=== PATIENT | male | born 1985 | race Caucasian/White ===

== ENCOUNTER 2017-07-26 21:09 | Emergency (ER) | payer SELFPAY ==
[~2017-07-26 21:09] MED LIST: CITA20 PO; FOLI1 PO; GABA100C4 PO; METO25 PO; THIA100T PO
[2017-07-26 21:10] VITALS: BP 149/85; PULSE 89; RESP 16; TEMP 98.7; O2SAT 97
[2017-07-26] MEDS ORDERED: MULT1TAB46 (22:54)
[2017-07-26] MEDS ORDERED: LEXA20TA PO (22:54)
[2017-07-26] MEDS ORDERED: CLON0.1T PO (22:54)
[2017-07-26] MEDS ORDERED: ATOM40 PO (22:54)
[2017-07-26] MEDS ORDERED: VIST50CA PO (22:54)
--- NOTE | 2017-07-26 23:03 | PD ---
HPI Chief Complaint: Cold / Flu Symptoms Time Seen by Provider: 22:57 Travel History International Travel<30 days: No Contact w/Intl Traveler<30days: No Traveled to known affect area: No History of Present Illness HPI 42-year-old male presents to emergency department for evaluation of cough, SORE throat chest congestion, right ear pain, nausea, diarrhea area this has worsening over the last 2-3 days. Subjective fever without chills. Significant abdominal pain. No chest pain. No focal deficits or weakness. Patient is no other symptoms to report. PFSH Past Medical History Blood Disorders: No Anxiety: Yes Depression: Yes Heart Rhythm Problems: Yes (PALPITATIONS) Chest Pain: Yes Diminished Hearing: No Endocrine: No GERD: Yes Genitourinary: No Hepatitis: Yes (hepatitis c) Hypertension: Yes Immune Disorder: Yes (HEPATITIS C) Musculoskeletal: Yes Neurologic: Yes Reproductive: No Respiratory: No Immunizations Current: Yes Radiation Therapy: No Influenza Vaccination: No Past Surgical History Arteriovenous Shunt: No Insulin Pump: No Joint Replacement: No Oral Surgery: Yes (WISDOM TEETH) Pacemaker: No Tonsillectomy: Yes Other Surgery: Yes Social History Alcohol Use: Yes (occ) Tobacco Use: Yes (VAPES) 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) Allergies-Medications (Allergen,Severity, Reaction): Coded Allergies: No Known Allergies (Verified Adverse Reaction, Unknown, 07/26/17) Reported Meds & Prescriptions Reported Meds & Active Scripts Active Tessalon Perles (Benzonatate) 100 Mg Cap 200 Mg PO TID PRN Prednisone 50 Mg Tab 50 Mg PO DAILY 5 Days Proair Hfa 8.5 GM Inh (Albuterol Sulfate) 90 Mcg/Act Aer 2 Puff INH Q4HR PRN 108 mcg/actuation Reported Vistaril (Hydroxyzine Pamoate) 50 Mg Cap 50 Mg PO TID PRN Clonidine (Clonidine HCl) 0.1 Mg Tab 0.1 Mg PO HS Lexapro (Escitalopram Oxalate) 20 Mg Tab 20 Mg PO DAILY Strattera (Atomoxetine HCl) 40 Mg Cap 40 Mg PO DAILY Multi Vitamin Daily (Multiple Vitamin) 1 Tab Tab Review of Systems Except as stated in HPI: all other systems reviewed are Neg Physical Exam Narrative GENERAL: Well-nourished, well-developed outpatient with no acute distress SKIN: Focused skin assessment warm/dry. HEAD: Normocephalic. No mastoid tenderness EARS: Bilateral pinnae and external canals appear within normal limits. Bilateral tympanic membranes without erythema, dullness or perforation. EYES: No scleral icterus. No injection or drainage. NECK: Supple, trachea midline. No JVD or lymphadenopathy. CARDIOVASCULAR: Regular rate and rhythm without murmurs, gallops, or rubs. RESPIRATORY: Breath sounds coarse but clear to cough equal bilaterally. No accessory muscle use. GASTROINTESTINAL: Abdomen soft, non-tender, nondistended. MUSCULOSKELETAL: No cyanosis, or edema. BACK: Nontender without obvious deformity. No CVA tenderness. Data Data Last Documented VS Vital Signs Date Time Temp Pulse Resp B/P (MAP) Pulse Ox O2 Delivery O2 Flow Rate FiO2 07/27/17 00:37 07/26/17 21:10 98.7 89 16 97 Room Air Orders Orders Influenzae A/B Antigen (07/26/17 23:03) Ed Discharge Order (07/27/17 00:12) MDM Medical Decision Making Medical Screen Exam Complete: Yes Emergency Medical Condition: Yes Medical Record Reviewed: Yes Differential Diagnosis Influenza versus pneumonia versus, goal versus bronchitis Narrative Course 32-year-old male presents to emergency department for evaluation. Patient appears without distress. Vital signs are stable. She has mildly erythematous pharynx. He does have coarse breath sounds. Abdominal exam is benign. InfluenZA the screen as needed. Patient was discharged home with symptomatic treatment. He is encouraged follow-up with primary care provider and return immediately with acute worsening of symptoms. Diagnosis Primary Impression: URI (upper respiratory infection) Qualified Codes: J06.9 - Acute upper respiratory infection, unspecified; B97.89 - Other viral agents as the cause of diseases classified elsewhere Referrals: Primary Care Physician Patient Instructions: General Instructions, Upper Respiratory Infection (ED) Departure Forms: Tests/Procedures, Work Release Enter return to work date: Jul 29, 2017 Additional Instructions: Humidified air may help to alleviate symptoms Follow-up with the primary care provider Return immediately with any acute worsening of symptoms Med/Other Pt SpecificInfo: Prescription(s) given Scripts Benzonatate (Tessalon Perles) 100 Mg Cap 200 MG PO TID Y for COUGH, #20 CAP 0 Refills Prov: Mami Wyatt 07/27/17 Prednisone (Prednisone) 50 Mg Tab 50 MG PO DAILY for 5 Days, #5 TAB 0 Refills Prov: Mami Wyatt 07/27/17 Albuterol 8.5 GM Inh (Proair Hfa 8.5 GM Inh) 90 Mcg/Act Aer 2 PUFF INH Q4HR Y for SHORTNESS OF BREATH, #1 INHALER 0 Refills 108 mcg/actuation Prov: Mami Wyatt 07/27/17 Disposition: 01 DISCHARGE HOME Condition: Stable Mami Wyatt Jul 26, 2017 23:03
[2017-07-27] MEDS ORDERED: BENZ100 PO (00:14)
[2017-07-27] MEDS ORDERED: ALBUAER3 INH (00:14)
[2017-07-27] MEDS ORDERED: PRED50 PO (00:14)
== END 2017-07-27 00:41 | disposition home or self-care (01) ==
LOC: NEPD 21:09
DX: J06.9 Acute upper respiratory infection, unspecified (principal); B97.89 Other viral agents as the cause of diseases classified elsewhere; B19.20 Unspecified viral hepatitis C without hepatic coma; F32.9 Major depressive disorder, single episode, unspecified; I10 Essential (primary) hypertension; R19.7 Diarrhea, unspecified; Z72.0 Tobacco use
CPT/HCPCS: 87804; 99284

== ENCOUNTER 2017-08-27 16:11 | Emergency (ER) | payer OTHER ==
[~2017-08-27] VITALS: Ht 175.3 cm; Wt 80.9 kg
[~2017-08-27 16:11] MED LIST changes: +ALBUAER3 INH; +ATOM40 PO; +BENZ100 PO; -CITA20 PO; +CLON0.1T PO; -FOLI1 PO; -GABA100C4 PO; +LEXA20TA PO; -METO25 PO; +MULT1TAB46; +PRED50 PO; -THIA100T PO; +VIST50CA PO
[2017-08-27 16:12] VITALS: BP 156/97; PULSE 131; RESP 20; TEMP 98.5; O2SAT 99
--- NOTE | 2017-08-27 17:20 | RADRPT ---
EXAM DATE/TIME: 08/27/2017 16:34 [facility] COMPARISON: No previous studies available for comparison. INDICATIONS : Fever. MEDICAL HISTORY : None. SURGICAL HISTORY : None. ENCOUNTER: Initial ACUITY: 1 day PAIN SCORE: 0/10 LOCATION: Bilateral chest FINDINGS: PA and lateral views of the chest demonstrate the lungs to be symmetrically aerated without evidence of mass, infiltrate or effusion. The cardiomediastinal contours are unremarkable. Osseous structure s are intact. CONCLUSION: 1. No acute cardiopulmonary disease. Khalif Barboza MD on August 27, 2017 at 17:18 Board Certified Radiologist. This report was verified electronically.
[2017-08-27] MEDS ORDERED: OSEL75 PO (18:41)
[2017-08-27] MEDS ORDERED: ZOFR4TAB PO (18:41)
--- NOTE | 2017-08-27 18:47 | PD ---
HPI Chief Complaint: Cold / Flu Symptoms Time Seen by Provider: 18:28 Travel History International Travel<30 days: No Contact w/Intl Traveler<30days: No Traveled to known affect area: No History of Present Illness HPI 32-year-old male that presents to the ED for evaluation of fever, body aches and cold-like symptoms. Per patient she's had this since this afternoon. Per patient this morning he was doing fine. He had some diarrhea and nausea but no vomiting. Feel like he has body aches throughout his body. He denies any chest pain or shortness of breath. States that he's been in contact with his stepson who was recently diagnosed with influenza be about a week ago. He himself has not had any symptoms until today. He has no known allergies to medication. No urinary or bowel movement other than diarrhea. He denies any other medical issues at this time. Per patient the pain comes and goes and is 5 out of 10. Not taken anything for this. PFSH Past Medical History Blood Disorders: No Anxiety: Yes Depression: Yes Heart Rhythm Problems: Yes (PALPITATIONS) Cardiovascular Problems: Yes Chest Pain: Yes Diminished Hearing: No Endocrine: No Gastrointestinal Disorders: Yes GERD: Yes Genitourinary: No Hepatitis: Yes (hepatitis c) Hypertension: Yes Immune Disorder: Yes (HEPATITIS C) Musculoskeletal: Yes Neurologic: Yes Reproductive: No Respiratory: No Immunizations Current: Yes Radiation Therapy: No Past Surgical History Arteriovenous Shunt: No Insulin Pump: No Joint Replacement: No Oral Surgery: Yes (WISDOM TEETH) Pacemaker: No Tonsillectomy: Yes Other Surgery: Yes Social History Alcohol Use: Yes (occ) Tobacco Use: Yes (VAPES) 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) Allergies-Medications (Allergen,Severity, Reaction): Coded Allergies: No Known Allergies (Verified Adverse Reaction, Unknown, 07/26/17) Reported Meds & Prescriptions Reported Meds & Active Scripts Active Zofran (Ondansetron HCl) 4 Mg Tab 4 Mg PO Q6HR PRN Tamiflu (Oseltamivir Phosphate) 75 Mg Cap 75 Mg PO BID 5 Days Tessalon Perles (Benzonatate) 100 Mg Cap 200 Mg PO TID PRN Prednisone 50 Mg Tab 50 Mg PO DAILY 5 Days Proair Hfa 8.5 GM Inh (Albuterol Sulfate) 90 Mcg/Act Aer 2 Puff INH Q4HR PRN 108 mcg/actuation Reported Vistaril (Hydroxyzine Pamoate) 50 Mg Cap 50 Mg PO TID PRN Clonidine (Clonidine HCl) 0.1 Mg Tab 0.1 Mg PO HS Lexapro (Escitalopram Oxalate) 20 Mg Tab 20 Mg PO DAILY Strattera (Atomoxetine HCl) 40 Mg Cap 40 Mg PO DAILY Multi Vitamin Daily (Multiple Vitamin) 1 Tab Tab Review of Systems Except as stated in HPI: all other systems reviewed are Neg Physical Exam Narrative GENERAL: Well-nourished, well-developed patient in no apparent distress. SKIN: Warm and dry. HEAD: Atraumatic. Normocephalic. EYES: Pupils equal and round reactive to light and accommodation. No scleral icterus. No injection or drainage. ENT: No nasal bleeding or discharge. Mucous membranes pink and moist. TMs are clear with no sign of infection or perforation. No mastoid tenderness. Ear canals are intact bilaterally. No lymphadenopathy. Nostril mucosa is red and moist with clear mucus noted. No sinus tenderness to palpation noted. Tonsils are not enlarged or swollen. No ulvua Deviation. Tongue is midline. NECK: Trachea midline. No JVD. No meningeal signs noted CARDIOVASCULAR: Regular rate and rhythm. RESPIRATORY: No accessory muscle use. Clear to auscultation. Breath sounds equal bilaterally. GASTROINTESTINAL: Abdomen soft, non-tender, nondistended. Hepatic and splenic margins not palpable. MUSCULOSKELETAL: Extremities without clubbing, cyanosis, or edema. No obvious deformities. NEUROLOGICAL: Awake and alert. No obvious cranial nerve deficits. Motor grossly within normal limits. Five out of 5 muscle strength in the arms and legs. Normal speech. PSYCHIATRIC: Appropriate mood and affect; insight and judgment normal. Data Data Last Documented VS Vital Signs Date Time Temp Pulse Resp B/P (MAP) Pulse Ox O2 Delivery O2 Flow Rate FiO2 08/27/17 16:12 98.5 131 20 156/97 (116) 99 Room Air Orders Orders Chest, Pa & Lat (08/27/17 ) Influenzae A/B Antigen (08/27/17 16:18) Ed Discharge Order (08/27/17 18:38) MDM Medical Decision Making Medical Screen Exam Complete: Yes Emergency Medical Condition: Yes Medical Record Reviewed: Yes Interpretation(s) Influenza was negative Last Impressions Chest X-Ray 08/27/17 0000 Signed Impressions: Service Date/Time: Sunday, August 27, 2017 16:34 - CONCLUSION: 1. No acute cardiopulmonary disease. Khalif Barboza MD Differential Diagnosis Influenza versus viral illness versus URI versus pneumonia versus nausea Narrative Course 32-year-old male that presents to the ED for evaluation of cold-like symptoms. Patient was properly examined and was found to have signs and symptoms consistent with appears to be likely influenza. Patient has exposure to influenza to family. Symptoms appear to be similar. Influenza and chest x-ray was negative. I suspect that influenza test is likely a false negative. Patient does have symptoms similar to influenza from his son. We'll treat with Tamiflu as well as Zofran. Told that if anything worsens she is to come back to the ED. Follow with PCP. Heart rate was slightly elevated in the 130s initially in triage but I rechecked it myself and it was 90. Patient appears to be no distress and his physical exam is reassuring at this time. Patient agrees with plan. I instructed that if patient worsens she is to come back to the ED. See ED if worsening symptoms. Diagnosis Primary Impression: Influenza Patient Instructions: General Instructions Departure Forms: Tests/Procedures, Work Release Enter return to work date: Aug 30, 2017 Additional Instructions: Motrin and Tylenol for pain and fever. You can use [id number] antihistamine as well as well as Mucinex as needed for runny nose and congestion. Cough drops for cough as needed. Drink plenty of fluids. Follow-up with PCP. See ED for worsening symptoms. Med/Other Pt SpecificInfo: Prescription(s) given Scripts Ondansetron (Zofran) 4 Mg Tab 4 MG PO Q6HR Y for NAUSEA OR VOMITING, #20 TAB 0 Refills Prov: Soco Kennedy DO 08/27/17 Oseltamivir (Tamiflu) 75 Mg Cap 75 MG PO BID for Mgmt Viral Infection for 5 Days, #10 CAP 0 Refills Prov: Soco Kennedy DO 08/27/17 Disposition: 01 DISCHARGE HOME Condition: Stable Jorge Franco Aug 27, 2017 18:47
== END 2017-08-27 19:05 | disposition home or self-care (01) ==
LOC: NEPK 16:11
DX: J11.1 Influenza due to unidentified influenza virus with other respiratory manifestations (principal); F32.9 Major depressive disorder, single episode, unspecified; B19.20 Unspecified viral hepatitis C without hepatic coma; Z72.0 Tobacco use
CPT/HCPCS: 71046; 87804; 99284

== ENCOUNTER 2017-12-30 01:14 | Emergency (ER) | payer OTHER ==
[~2017-12-30] VITALS: Ht 175.3 cm; Wt 81.4 kg
[~2017-12-30 01:14] MED LIST changes: +OSEL75 PO; +ZOFR4TAB PO
[2017-12-30 01:15] VITALS: BP 142/86; PULSE 68; RESP 18; TEMP 97.6; O2SAT 98
[2017-12-30] MEDS ORDERED: PENI500T PO (01:33)
--- NOTE | 2017-12-30 01:35 | PD ---
HPI Chief Complaint: Oral / Dental Pain or Problem Time Seen by Provider: 01:31 Travel History International Travel<30 days: No Contact w/Intl Traveler<30days: No Traveled to known affect area: No History of Present Illness HPI 32-year-old male presents to the emergency department complaint of left-sided jaw pain and dental pain 3 weeks. Patient has been in the care of a dentist has not been able to afford dental extraction completed a course of azithromycin without symptom relief and now presents as patient continues to have increasing pain is noted some swelling to the side of his face. Patient is not diabetic. Patient's had no fever or chills. Patient does have discomfort with attempted chewing or opening closing the mouth but does not have any inability to do so. Patient does not report any swelling of the submandibular soft tissue. No difficulty with swallowing or breathing. No stridor or hoarseness. Patient took 2 Aleve just prior to arrival to the emergency department has been taking this medication frequently. Patient rates pain as moderate to severe. PFSH Past Medical History Narrative Medical Anxiety depression palpitations GERD previous substance use dental extraction; tobacco use alcohol use; nursing notes reviewed Blood Disorders: No Anxiety: Yes Depression: Yes Heart Rhythm Problems: Yes (PALPITATIONS) Cardiovascular Problems: Yes Chest Pain: Yes Diminished Hearing: No Endocrine: No Gastrointestinal Disorders: Yes GERD: Yes Genitourinary: No Hepatitis: Yes (hepatitis c) Hypertension: Yes Immune Disorder: Yes (HEPATITIS C) Musculoskeletal: Yes Neurologic: Yes Reproductive: No Respiratory: No Immunizations Current: Yes Radiation Therapy: No Past Surgical History Arteriovenous Shunt: No Insulin Pump: No Joint Replacement: No Oral Surgery: Yes (WISDOM TEETH) Pacemaker: No Tonsillectomy: Yes Other Surgery: Yes Social History Alcohol Use: Yes (occ) Tobacco Use: Yes (VAPES) 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) Allergies-Medications (Allergen,Severity, Reaction): Coded Allergies: No Known Allergies (Verified Adverse Reaction, Unknown, 07/26/17) Reported Meds & Prescriptions Reported Meds & Active Scripts Active Penicillin V Potassium 500 Mg Tab 500 Mg PO Q6H 10 Days Zofran (Ondansetron HCl) 4 Mg Tab 4 Mg PO Q6HR PRN Tamiflu (Oseltamivir Phosphate) 75 Mg Cap 75 Mg PO BID 5 Days Tessalon Perles (Benzonatate) 100 Mg Cap 200 Mg PO TID PRN Prednisone 50 Mg Tab 50 Mg PO DAILY 5 Days Proair Hfa 8.5 GM Inh (Albuterol Sulfate) 90 Mcg/Act Aer 2 Puff INH Q4HR PRN 108 mcg/actuation Reported Vistaril (Hydroxyzine Pamoate) 50 Mg Cap 50 Mg PO TID PRN Clonidine (Clonidine HCl) 0.1 Mg Tab 0.1 Mg PO HS Lexapro (Escitalopram Oxalate) 20 Mg Tab 20 Mg PO DAILY Strattera (Atomoxetine HCl) 40 Mg Cap 40 Mg PO DAILY Multi Vitamin Daily (Multiple Vitamin) 1 Tab Tab Review of Systems Except as stated in HPI: all other systems reviewed are Neg Physical Exam Narrative GENERAL: Well-developed nourished male no acute distress no respiratory distress SKIN: Warm and dry. HEAD: Normocephalic. EYES: No scleral icterus. No injection or drainage. ENT: Mucous membranes moist airways patent poor dentition with evidence of dental caries and fractured cusp of the #18 tooth also avulsion of portion of the #21 tooth; gingival tenderness to palpation without fluctuance positive soft tissue swelling is noted. NECK: Supple, trachea midline. No JVD or lymphadenopathy. CARDIOVASCULAR: Regular rate and rhythm without murmurs, gallops, or rubs. RESPIRATORY: Breath sounds equal bilaterally. No accessory muscle use. Data Data Last Documented VS Vital Signs Date Time Temp Pulse Resp B/P (MAP) Pulse Ox O2 Delivery O2 Flow Rate FiO2 12/30/17 01:32 16 12/30/17 01:15 97.6 68 142/86 (104) 98 Orders Orders Penicillin V Potassium (Veetids) (12/30/17 01:45) Oxycodone-Acetamin 5-325 Mg (Percocet (12/30/17 01:45) Ed Discharge Order (12/30/17 01:31) [facility] Medical Decision Making Medical Screen Exam Complete: Yes Emergency Medical Condition: Yes Medical Record Reviewed: Yes Differential Diagnosis Dentalgia, dental fracture, dental abscess, dental caries Narrative Course Patient with tender gingiva about the #18 dentition without fluctuance of the gingiva. Patient does show evidence of fracture of the cusp as well as dental caries. Patient given first dose of oral antibiotic Penicillin VK 500 mg in the emergency department and one-time dose of narcotic Percocet 5/325. Patient is aware no prescription will be provided for narcotic medication. Patient is already taken NSAID [employer]. Diagnosis Primary Impression: Dentalgia Additional Impression: Dental abscess Referrals: Dentist 1 day Patient Instructions: Narcotic given in the ED Additional Instructions: Complete course of antibiotic as prescribed Follow-up with your dentist call office in a.m. Return to the emergency department for any concerns or change in condition Med/Other Pt SpecificInfo: Prescription(s) given Scripts Penicillin V Potassium (Penicillin V Potassium) 500 Mg Tab 500 MG PO Q6H for Infection for 10 Days, #40 TAB 0 Refills Prov: Tasha Blankenship MD 12/30/17 Disposition: 01 DISCHARGE HOME Condition: Stable Tasha Blankenship MD Dec 30, 2017 01:35
[2017-12-30] MEDS ORDERED: oxyCODONE/ACETAMINOPHEN 5 MG/325 MG TAB PO ONE (01:45)
[2017-12-30] MEDS ORDERED: PENICILLIN V POTASSIUM 500 MG TAB PO ONE (01:45)
== END 2017-12-30 01:45 | disposition home or self-care (01) ==
LOC: PHED 01:14
DX: K04.7 Periapical abscess without sinus (principal); F41.9 Anxiety disorder, unspecified; F32.9 Major depressive disorder, single episode, unspecified; K21.9 Gastro-esophageal reflux disease without esophagitis; I10 Essential (primary) hypertension; F17.290 Nicotine dependence, other tobacco product, uncomplicated; Z86.19 Personal history of other infectious and parasitic diseases; Z79.899 Other long term (current) drug therapy
CPT/HCPCS: 99283

== ENCOUNTER 2018-01-06 20:03 | Emergency (ER) | payer OTHER ==
[~2018-01-06] VITALS: Ht 175.3 cm; Wt 82.5 kg
[~2018-01-06 20:03] MED LIST changes: +PENI500T PO
[2018-01-06 20:22] VITALS: BP 144/88; PULSE 112; RESP 16; TEMP 98.1; O2SAT 99
[2018-01-06] MEDS ORDERED: SODIUM CHLOR 0.9% 1000 ML INJ 1,000 ML IV SCH (20:41)
[2018-01-06] MEDS ORDERED: ONDANSETRON ODT 4 MG TAB PO ONE (20:45)
[2018-01-06] MEDS ORDERED: PANTOPRAZOLE SODIUM 40 MG VIAL IVP ONE (20:45)
[2018-01-06] MEDS ORDERED: SODIUM CHLORIDE 0.9% FLUSH 10 ML FLUSH IVF PRN (20:45)
--- NOTE | 2018-01-06 20:45 | PD ---
HPI Chief Complaint: GI Complaint Time Seen by Provider: 20:41 Travel History International Travel<30 days: No Contact w/Intl Traveler<30days: No Traveled to known affect area: No History of Present Illness HPI 32-year-old male presents to the emergency department by private transportation for complaint of dizziness lightheadedness nausea and vomiting streaks of blood 2 today. Patient states she has not felt well since seen in the emergency department last week and diagnosed with dental abscess started on penicillin and was taking [id number] ibuprofen and Aleve. Patient states he did not seem to be improving after 3 days of antibiotic went to his dentist who started him on clindamycin and Lortab and symptoms seem to have improved. No reported fever chills. Patient has had some blood in his sinus drainage and then today was very nauseated and after lifting repetitively 20 and 40 pounds numerous times became lightheaded nauseated and vomited stomach contents with streaks of blood twice. Patient denies any bloody stools. No reported explosive flatus or mucoid diarrheal stools. Patient states still feels weak and nauseated at this time. Patient is no longer taking penicillin is still taking clindamycin and is scheduled to have his tooth removed sometime this week by his dentist. No prior history of vomiting blood. Patient does not report any gingival bleeding. Patient rates discomfort as epigastric and 2/10 in intensity. Patient is unable to identify exacerbating (other than possible nsaid use or heavy lifting), or alleviating factors (rest may help 'some'). Patient states he discontinued use of NSAIDs after receiving prescription for hydrocodone with acetaminophen. No prior similar history. No melena or hematochezia. [facility] Past Medical History Narrative Medical Anxiety depression palpitations GERD hepatitis C oral surgery; occasional alcohol use vapor cigarettes, prior substance use; nursing notes and medical record reviewed Blood Disorders: No Anxiety: Yes Depression: Yes Heart Rhythm Problems: Yes (PALPITATIONS) Cardiovascular Problems: Yes Chemotherapy: No Chest Pain: Yes Diminished Hearing: No Endocrine: No Gastrointestinal Disorders: Yes GERD: Yes Genitourinary: No Hepatitis: Yes (hepatitis c) Hypertension: Yes Immune Disorder: Yes (HEPATITIS C) Implanted Vascular Access Dvce: No Musculoskeletal: Yes Neurologic: Yes Reproductive: No Respiratory: No Immunizations Current: Yes Radiation Therapy: No ?: Not Past Surgical History AICD: No Arteriovenous Shunt: No Insulin Pump: No Joint Replacement: No Oral Surgery: Yes (WISDOM TEETH) Pacemaker: No Tonsillectomy: Yes Other Surgery: Yes Social History Alcohol Use: Yes (occ) Tobacco Use: Yes (VAPES) 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) Allergies-Medications (Allergen,Severity, Reaction): Coded Allergies: No Known Allergies (Verified Adverse Reaction, Unknown, 01/06/18) Reported Meds & Prescriptions Reported Meds & Active Scripts Active Phenergan (Promethazine HCl) 25 Mg Tablet 25 Mg PO Q6H PRN Carafate Liq (Sucralfate) 1 Gm/10 Ml Susp 1 Gm PO Q6HR 7 Days on empty stomach Proair Hfa 8.5 GM Inh (Albuterol Sulfate) 90 Mcg/Act Aer 2 Puff INH Q4HR PRN 108 mcg/actuation Reported Buspirone (Buspirone HCl) 10 Mg Tab 10 Mg PO QID PRN Clindamycin (Clindamycin HCl) 300 Mg Cap 300 Mg PO Q6H Vistaril (Hydroxyzine Pamoate) 50 Mg Cap 50 Mg PO TID PRN Clonidine (Clonidine HCl) 0.1 Mg Tab 0.1 Mg PO HS Lexapro (Escitalopram Oxalate) 20 Mg Tab 20 Mg PO DAILY Strattera (Atomoxetine HCl) 40 Mg Cap 40 Mg PO DAILY Multi Vitamin Daily (Multiple Vitamin) 1 Tab Tab Review of Systems Except as stated in HPI: all other systems reviewed are Neg General / Constitutional: No: Fever, Chills HENT: Positive: Nosebleed, No: Congestion, Gingival Bleeding Cardiovascular: No: Chest Pain or Discomfort Respiratory: No: Shortness of Breath, Hemoptysis Gastrointestinal: Positive: Nausea, Vomiting, Abdominal Pain, Hematemesis ( streaks), No: Diarrhea, Hematochezia, Loss of Appetite Genitourinary: No: Dysuria, Hematuria, Flank Pain Musculoskeletal: No: Myalgias, Arthralgias Skin: No Rash Neurologic: Positive: Weakness, Dizziness, No: Syncope, Focal Abnormalities, Coordination Problem Psychiatric: No: Anxiety Hematologic/Lymphatic: No: Easy Bruising Physical Exam Narrative GENERAL: Well-developed well-nourished male no acute distress no respiratory distress SKIN: Warm and dry. HEAD: Normocephalic. EYES: No scleral icterus. No injection or drainage. NECK: Supple, trachea midline. No JVD or lymphadenopathy. CARDIOVASCULAR: Increased regular rate and rhythm without murmurs, gallops, or rubs. RESPIRATORY: Breath sounds equal bilaterally. No accessory muscle use. GASTROINTESTINAL: Abdomen soft, non-tender, nondistended. No guarding no rebound MUSCULOSKELETAL: No cyanosis, or edema. BACK: Nontender without obvious deformity. No CVA tenderness. Data Data Last Documented VS Vital Signs Date Time Temp Pulse Resp B/P (MAP) Pulse Ox O2 Delivery O2 Flow Rate FiO2 01/07/18 00:45 01/07/18 00:30 88 16 100 Room Air 01/06/18 20:22 98.1 Orders Orders Complete Blood Count With Diff (01/06/18 20:41) Comprehensive Metabolic Panel (01/06/18 20:41) Lipase (01/06/18 20:41) Prothrombin Time / Inr (Pt) (01/06/18 20:41) Act Partial Throm Time (Ptt) (01/06/18 20:41) Urinalysis - C+S If Indicated (01/06/18 20:41) Type And Screen (01/06/18 20:41) Abdomen, Flat & Upright (01/06/18 20:41) Ecg Monitoring (01/06/18 20:41) Iv Access Insert/Monitor (01/06/18 20:41) Oximetry (01/06/18 20:41) Pantoprazole Inj (Protonix Inj) (01/06/18 20:45) Sodium Chlor 0.9% 1000 Ml Inj (Ns 1000 M (01/06/18 20:41) Sodium Chloride 0.9% Flush (Ns Flush) (01/06/18 20:45) Ondansetron Odt (Zofran Odt) (01/06/18 20:45) Orthostatic Vital Signs (01/06/18 20:41) Sucralfate Liq (Carafate Liq) (01/06/18 23:15) Sodium Chlor 0.9% 1000 Ml Inj (Ns 1000 M (01/06/18 23:15) Ed Discharge Order (01/06/18 23:53) Labs Laboratory Tests Test 01/06/18 20:45 01/06/18 21:05 White Blood Count 5.8 TH/MM3 Red Blood Count 5.24 MIL/MM3 Hemoglobin 14.8 GM/DL Hematocrit 43.9 % Mean Corpuscular Volume 83.8 FL Mean Corpuscular Hemoglobin 28.3 PG Mean Corpuscular Hemoglobin Concent 33.8 % Red Cell Distribution Width 11.8 % Platelet Count 435 TH/MM3 Mean Platelet Volume 6.7 FL Neutrophils (%) (Auto) 53.0 % Lymphocytes (%) (Auto) 36.5 % Monocytes (%) (Auto) 8.1 % Eosinophils (%) (Auto) 1.9 % Basophils (%) (Auto) 0.5 % Neutrophils # (Auto) 3.1 TH/MM3 Lymphocytes # (Auto) 2.1 TH/MM3 Monocytes # (Auto) 0.5 TH/MM3 Eosinophils # (Auto) 0.1 TH/MM3 Basophils # (Auto) 0.0 TH/MM3 CBC Comment DIFF FINAL Differential Comment Prothrombin Time 10.1 SEC Prothromb Time International Ratio 1.0 RATIO Activated Partial Thromboplast Time 26.9 SEC Blood Urea Nitrogen 13 MG/DL Creatinine 0.79 MG/DL Random Glucose 131 MG/DL Total Protein 8.5 GM/DL Albumin 3.8 GM/DL Calcium Level 9.5 MG/DL Alkaline Phosphatase 69 U/L Aspartate Amino Transf (AST/SGOT) 21 U/L Alanine Aminotransferase (ALT/SGPT) 46 U/L Total Bilirubin 0.2 MG/DL Sodium Level 136 MEQ/L Potassium Level 3.8 MEQ/L Chloride Level 101 MEQ/L Carbon Dioxide Level 29.7 MEQ/L Anion Gap 5 MEQ/L Estimat Glomerular Filtration Rate 112 ML/MIN Lipase 92 U/L Urine Color YELLOW Urine Turbidity CLEAR Urine pH 6.5 Urine Specific [place] 1.020 Urine Protein NEG mg/dL Urine Glucose (UA) NEG mg/dL Urine Ketones NEG mg/dL Urine Occult Blood NEG Urine Nitrite NEG Urine Bilirubin NEG Urine Urobilinogen 0.2 MG/DL Urine Leukocyte Esterase NEG Urine RBC 0-2 /hpf Urine WBC 0-2 /hpf Urine Squamous Epithelial Cells 0-5 /hpf Urine Bacteria NONE /hpf Microscopic Urinalysis Comment CULT NOT INDICATED MDM Medical Decision Making Medical Screen Exam Complete: Yes Emergency Medical Condition: Yes Medical Record Reviewed: Yes Interpretation(s) Last Impressions Abdomen X-Ray 01/06/182040 Signed Impressions: CONCLUSION: No acute findings. CBC & BMP Diagram 01/06/18 20:45 Total Protein 8.5 H, Albumin 3.8, Calcium Level 9.5, Alkaline Phosphatase 69, Aspartate Amino Transf (AST/SGOT) 21, Alanine Aminotransferase (ALT/SGPT) 46, Total Bilirubin 0.2 Vital Signs Date Time Temp Pulse Resp B/P (MAP) Pulse Ox O2 Delivery O2 Flow Rate FiO2 01/07/18 00:45 01/07/18 00:30 88 16 134/78 (96) 100 Room Air 01/06/18 21:30 94 18 135/88 (104) 100 Room Air 01/06/18 21:30 18 100 Room Air 01/06/18 21:19 89 129/85 (100) 102 134/93 (107) 108 137/92 (107) 01/06/18 20:22 98.1 112 16 144/88 (106) 99 Differential Diagnosis Gastritis, Boerhaave's, Yvonne-Ortega tear, NSAID induced gastritis, NSAID induced upper GI bleed, renal insufficiency, anemia, dehydration, adverse medication reaction recent penicillin and clindamycin use Narrative Course Patient placed on cardiac exercise specialist continuous pulse oximetry IV access obtained and orthostatic measurements ordered Patient administered Zofran ODT 4 mg by mouth as well as bolus of normal saline Patient resting comfortably reports after Zofran nausea almost completely resolved CBC is automated differential values in normal range orthostatic measurements show change in heart rate from supine to standing but blood pressure remains stable Coagulation studies and platelet count within normal range Chemistries grossly within normal limit BUN and creatinine ratio is not consistent with upper GI bleed; patient has normal range coagulation studies; urinalysis normal At midnight patient feels markedly improved is clinically improved and stable for outpatient management tolerating oral hydration well amatory without becoming symptom patient will be given prescription for Carafate and Phenergan as well as encouraged to take Zantac 150 no work 2 days is encouraged to follow clear liquid diet for next 12-24 hrs. advance to bland/brat diet and then regular diet and to follow-up with his primary care provider and psychodramatist. Patient is instructed not to use any NSAIDs for the next 2 weeks until all symptoms resolve and then to restart as needed cautiously the use of NSAIDs. Critical Care Narrative Aggregate critical care time was 35 minutes. Time to perform other separately billable procedures was not included in the critical care time. My time did not include minutes spent treating any other patients simultaneously or on activities that did not directly contribute to the patient's treatment. The services I provided to this patient were to treat and/or prevent clinically significant deterioration that could result in: Hemorrhage, shock, I provided critical care services requiring my management, as noted below: Chart data review, documentation time, medication orders and management, vital sign assessments/reviewing monitor data, ordering and reviewing lab tests, ordering and interpreting/reviewing x-rays and diagnostic studies, care of the patient and discussion of the patient with the admitting physicians. Diagnosis Primary Impression: Acute gastritis Referrals: Inventory Associate And Driver call for appointment Primary Care Physician call for appointment Patient Instructions: General Instructions Departure Forms: Tests/Procedures, Work Release Special Instructions: no work x 2 days Additional Instructions: Follow clear liquid diet for next 12-24 hours advance as tolerated to bland/ brat diet then advance to regular diet avoiding fried and fatty foods Do not use nonsteroidal anti-inflammatory medication such as ibuprofen/Advil/ Motrin or Naprosyn/naproxen/Aleve for at least x 2 weeks Take Zantac 150 twice daily for 14 days Use Carafate as prescribed 7 days Take Phenergan as prescribed as needed for nausea and/or vomiting Follow-up with your primary care provider/psychodramatist call office in a.m. to schedule follow-up appointment Return to the emergency department for any concerns or change in condition No work 2 days Complete course of oral antibiotic as currently prescribed and follow-up with dentist as scheduled Med/Other Pt SpecificInfo: Prescription(s) given Scripts Promethazine (Phenergan) 25 Mg Tablet 25 MG PO Q6H Y for NAUSEA OR VOMITING, #7 TAB 0 Refills Prov: Tasha Blankenship MD 01/06/18 Sucralfate Liq (Carafate Liq) 1 Gm/10 Ml Susp 1 GM PO Q6HR for Duodenal ulcer for 7 Days, ML 0 Refills on empty stomach Prov: Tasha Blankenship MD 01/06/18 Disposition: 01 DISCHARGE HOME Condition: Stable Tasha Blankenship MD Jan 06, 2018 20:45
[2018-01-06] MEDS ORDERED: CLIN300C5 PO (20:52)
[2018-01-06] MEDS ORDERED: BUSP10TA PO (20:53)
[2018-01-06 20:57] LABS: AUTOMATED NEUTROPHIL # 3.1 TH/MM3 (1.8-7.7); BASOPHIL % 0.5 % (0.0-2.0); EOSINOPHIL # 0.1 TH/MM3 (0-0.4); EOSINOPHIL % 1.9 % (0.0-4.0); HEMATOCRIT 43.9 % (39.0-51.0); HEMOGLOBIN 14.8 GM/DL (13.0-17.0); LYMPH % 36.5 % (9.0-44.0); LYMPHOCYTE # 2.1 TH/MM3 (1.0-4.8); MEAN CELL VOLUME 83.8 FL (80.0-100.0); MEAN CORPUSCULAR HEMOGLOBIN 28.3 PG (27.0-34.0); MEAN CORPUSCULAR HGB CONC 33.8 % (32.0-36.0); MEAN PLATELET VOLUME 6.7 FL (7.0-11.0); MONO % 8.1 % (0.0-8.0); MONOCYTE # 0.5 TH/MM3 (0-0.9); PLATELET COUNT 435 TH/MM3 (150-450); RED BLOOD COUNT 5.24 MIL/MM3 (4.50-5.90); RED CELL DISTRIBUTION WIDTH 11.8 % (11.6-17.2); WHITE BLOOD COUNT 5.8 TH/MM3 (4.0-11.0)
[2018-01-06 21:07] LABS: CHLORIDE 101 MEQ/L (98-107); SODIUM (NA) 136 MEQ/L (136-145)
[2018-01-06 21:10] LABS: CALCIUM 9.5 MG/DL (8.5-10.1)
[2018-01-06 21:11] LABS: ALBUMIN 3.8 GM/DL (3.4-5.0); BICARBONATE 29.7 MEQ/L (21.0-32.0); BLOOD UREA NITROGEN 13 MG/DL (7-18); GLUCOSE,RANDOM 131 MG/DL (74-106)
[2018-01-06 21:14] LABS: ALT (GPT) 46 U/L (12-78); AST (GOT) 21 U/L (15-37); CREATININE 0.79 MG/DL (0.60-1.30); GLOMERULAR FILTRATION RATE 112 ML/MIN (>89)
[2018-01-06 21:16] LABS: TOTAL BILIRUBIN ADULT 0.2 MG/DL (0.2-1.0); TOTAL PROTEIN 8.5 GM/DL (6.4-8.2)
[2018-01-06 21:17] LABS: ALKALINE PHOSPHATASE 69 U/L (45-117)
[2018-01-06 21:19] VITALS: BP_SYST 129; BP_SYST 134; BP_SYST 137; BP_DIAS 85; BP_DIAS 92; BP_DIAS 93
[2018-01-06 21:30] VITALS: BP 135/88; PULSE 94; RESP 18; O2SAT 100
[2018-01-06 21:39] LABS: PROTHROMBIN TIME - PATIENT 10.1 SEC (9.8-11.6)
[2018-01-06 21:41] LABS: BILIRUBIN, URINE NEG (NEG); BLOOD, URINE NEG (NEG); GLUCOSE,URINE NEG (NEG); KETONE, URINE NEG (NEG); NITRITE,URINE NEG (NEG); PH, URINE 6.5 (5.0-8.5); URINE COLOR YELLOW (YELLW/STRAW); URINE LEUKOCYTE ESTERASE NEG (NEG)
[2018-01-06 21:47] LABS: RBC, URINE 0-2 /hpf (0-3); SQUAMOUS EPITHELIAL CELL URINE 0-5 /hpf (0-5); WBC, URINE 0-2 /hpf (0-5)
--- NOTE | 2018-01-06 21:48 | RADRPT ---
EXAM DATE: 01/06/2018 9:25 PM EDT AGE/SEX: 32 years / Male INDICATIONS: Lower abdominal pain, vomiting blood. CLINICAL DATA: This is the patient's initial encounter. Patient reports that signs and symptoms have been present for 1 week and indicates a pain score of 7/10. MEDICAL/SURGICAL HISTORY: . No pertinent history . No pertinent history. COMPARISON: No prior exams available for comparison. FINDINGS: Supine and upright views of the abdomen were performed. The abdominal bowel gas pattern is normal. No air-fluid levels are seen. No abnormal masses, calcifications, or organomegaly is seen. The visualiz ed lower lungs are clear. No evidence of free intraperitoneal gas. The osseous structures are unremar kable. CONCLUSION: No acute findings. Electronically signed by: Misha Newell MD 01/06/2018 9:47 PM EDT
[2018-01-06] MEDS ORDERED: SODIUM CHLOR 0.9% 1000 ML INJ 1,000 ML IV ONE (23:15)
[2018-01-06] MEDS ORDERED: SUCRALFATE 1 GM/10 ML CUP PO ONE (23:15)
[2018-01-06] MEDS ORDERED: PROM25TA10 PO (23:59)
[2018-01-06] MEDS ORDERED: CARA1SUS3 PO (23:59)
[2018-01-07 00:30] VITALS: BP 134/78; PULSE 88; RESP 16; O2SAT 100
== END 2018-01-07 00:50 | disposition home or self-care (01) ==
LOC: PHED 20:03
DX: K29.00 Acute gastritis without bleeding (principal); R53.1 Weakness; R11.2 Nausea with vomiting, unspecified; B19.20 Unspecified viral hepatitis C without hepatic coma; R00.2 Palpitations; I10 Essential (primary) hypertension
CPT/HCPCS: 74019; 80053; 81001; 83690; 85025; 85610; 85730; 86850; 86900; 86901; 96361; 96374; 99291; C9113; J7030